=== PATIENT | female | born 1955 | race African-American/Black ===

== ENCOUNTER 2016-08-02 11:50 | Emergency (ER) | payer MEDICARE ==
--- NOTE | 2016-08-02 12:00 | ER Document Report ---
ED Medical Screen (RME) - General Stated Complaint: NAUSEA/VOMITING Notes: last night: hot and cold flashes, nausea with vomiting, denies abdominal pain. Last Bm- nl. I have greeted and performed a rapid initial assessment of this patient. A comprehensive ED assessment and evaluation of the patient, analysis of test results and completion of the medical decision making process will be conducted by additional ED providers. - Related Data Allergies/Adverse Reactions: No Known Allergies Allergy (Verified 08/02/16 12:01) Past Medical History - Past Medical History Cardiac Medical History: Reports: Hx Hypertension Neurological Medical History: Reports: Hx Migraine Endocrine Medical History: Reports: Hx Diabetes Mellitus Type 2 - glucose intolerant Past Surgical History: Reports: Hx Breast Surgery, Hx Hysterectomy - Immunizations Immunizations up to date: Yes Hx Diphtheria, Pertussis, Tetanus Vaccination: Yes Physical Exam - Vital signs Vitals: Temp Pulse Resp BP Pulse Ox 98.0 F 64 20 143/105 H 98 08/02/16 11:54 08/02/16 11:54 08/02/16 11:54 08/02/16 11:54 08/02/16 11:54 Course - Vital Signs Vital signs: Temp Pulse Resp BP Pulse Ox 98.0 F 64 20 143/105 H 98 08/02/16 11:54 08/02/16 11:54 08/02/16 11:54 08/02/16 11:54 08/02/16 11:54
[2016-08-02] MEDS ORDERED: ONDANSETRON 4 MG TAB.RAPDIS PO ONE (12:03)
[2016-08-02] MEDS ORDERED: NORMAL SALINE 1000 ML 1,000 ML IV PRN (12:29)
--- NOTE | 2016-08-02 12:45 | ER Document Report ---
ED GI/ - General Chief Complaint: Nausea/Vomiting Stated Complaint: NAUSEA/VOMITING Notes: 61 yo female c/o acute onset n/v last pm. + chills and sweats. + abdominal soreness from vomiting. no fever. no chest pain or shortness of breath TRAVEL OUTSIDE OF THE [place] IN LAST 30 DAYS: No - HPI Patient complains to provider of: Vomiting Onset: Yesterday Timing/Duration: Sudden Quality of pain: Achy Pain Level: 5 Vaginal bleeding (Compared to normal period): None Associated symptoms: Chills, Diarrhea, Nausea, Vomiting Exacerbated by: Denies Relieved by: Denies - Related Data Allergies/Adverse Reactions: No Known Allergies Allergy (Verified 08/02/16 12:01) Past Medical History - General Information source: Patient - Social History Smoking Status: Unknown if Ever Smoked Chew tobacco use (# tins/day): No Frequency of alcohol use: Occasional Drug Abuse: None Family History: Reviewed & Not Pertinent. denies: Malignancy Patient has suicidal ideation: No Patient has homicidal ideation: No - Past Medical History Cardiac Medical History: Reports: Hx Hypertension Neurological Medical History: Reports: Hx Migraine Endocrine Medical History: Reports: Hx Diabetes Mellitus Type 2 - glucose intolerant Renal/ Medical History: Denies: Hx Peritoneal Dialysis Past Surgical History: Reports: Hx Breast Surgery, Hx Hysterectomy - Immunizations Immunizations up to date: Yes Hx Diphtheria, Pertussis, Tetanus Vaccination: Yes Review of Systems - Review of Systems Constitutional: See HPI, Chills, Diaphoresis EENT: No symptoms reported Cardiovascular: No symptoms reported Respiratory: No symptoms reported Gastrointestinal: See HPI, Vomiting Genitourinary: No symptoms reported Female Genitourinary: No symptoms reported Musculoskeletal: No symptoms reported Skin: No symptoms reported Hematologic/Lymphatic: No symptoms reported Neurological/Psychological: No symptoms reported Physical Exam - Vital signs Vitals: Temp Pulse Resp BP Pulse Ox 98.0 F 64 20 143/105 H 98 08/02/16 11:54 08/02/16 11:54 08/02/16 11:54 08/02/16 11:54 08/02/16 11:54 Interpretation: Hypertensive - General General appearance: Alert In distress: Mild - mildly ill looking - HEENT Head: Normocephalic, Atraumatic Eyes: Normal Conjunctiva: Normal Pupils: PERRL Tympanic membrane: Normal Mucous membranes: Moist Neck: Normal, Supple - Respiratory Respiratory status: No respiratory distress Chest status: Nontender Breath sounds: Normal Chest palpation: Normal - Cardiovascular Rhythm: Regular Heart sounds: Normal auscultation Murmur: No - Abdominal Inspection: Normal Distension: No distension Bowel sounds: Normal Tenderness: Tender - mild generalized abdominal wall tenderness. no guarding or rebound Organomegaly: No organomegaly - Back Back: Normal, Nontender - Extremities General upper extremity: Normal inspection, Nontender, Normal color, Normal ROM , Normal temperature General lower extremity: Normal inspection, Nontender, Normal color, Normal ROM , Normal temperature, Normal weight bearing. No: Sahra's sign - Neurological Neuro grossly intact: Yes Cognition: Normal Orientation: AAOx4 [place] Coma Scale Eye Opening: Spontaneous [place] Coma Scale Verbal: Oriented Litzy Coma Scale Motor: Obeys Commands [place] Coma Scale Total: 15 Speech: Normal Motor strength normal: LUE, RUE, LLE, RLE Sensory: Normal - Psychological Associated symptoms: Normal affect, Normal mood - Skin Skin Temperature: Warm Skin Moisture: Dry Skin Color: Normal Course - Re-evaluation Re-evalutation: 08/02/16 12:44 pt evaluated. labs, IV and meds ordered. will continue to monitor 08/02/16 14:36 labs unremarkable except for + urine nitrites. will treat with antibiotic and and UC. pt is symptomatically improved. tolerating po. 08/02/16 14:38 pt is stable for discharge and out patient follow up. pt agreeable with plan 08/02/16 14:40 BP noted to be elevated on arrival. + hx/o HTN. actively vomiting at the time. 08/02/16 15:18 Improved at time of discharge - Vital Signs Vital signs: Temp Pulse Resp BP Pulse Ox 98.0 F 64 20 143/105 H 98 08/02/16 11:54 08/02/16 11:54 08/02/16 11:54 08/02/16 11:54 08/02/16 11:54 - Laboratory Result Diagrams: 08/02/16 12:45 08/02/16 12:45 Laboratory results interpreted by me: 08/02/16 08/02/16 12:45 13:54 Sodium 145.9 H Glucose 126 H Urine Ketones TRACE H Urine Blood MODERATE H Urine Nitrite POSITIVE H Discharge - Discharge Clinical Impression: Vomiting Qualifiers: Vomiting type: unspecified Vomiting Intractability: non-intractable Nausea presence: with nausea Qualified Code(s): R11.2 - Nausea with vomiting, unspecified UTI (urinary tract infection) Qualifiers: Urinary tract infection type: acute cystitis Hematuria presence: with hematuria Qualified Code(s): N30.01 - Acute cystitis with hematuria Condition: Stable Disposition: HOME, SELF-CARE Instructions: Intravenous (IV) Fluids ([facility]), Nitrofurantoin ([facility]), Urinary Tract Infection ([facility]), Vomiting ([facility]), Antinausea Medication ([facility]) Additional Instructions: meds as prescribed encourage fluids diet as tolerated follow up with primary care if symptoms persist return to ER for any worsening Prescriptions: Ondansetron HCl [Zofran 8 mg Tablet] 8 mg PO Q8HP PRN #20 tablet PRN Reason: Nitrofurantoin Macrocrystal [Macrodantin] 100 mg PO QID #28 capsule Forms: Elevated Blood Pressure
[2016-08-02 13:38] LABS: ALANINE AMINOTRANSFERASE 24 U/L (9-52); ALBUMIN 4.5 g/dL (3.5-5.0); ALKALINE PHOSPHATASE 71 U/L (38-126); ANION GAP 16 (5-19); ASPARTATE AMINO TRANSFERASE 24 U/L (14-36); BILIRUBIN,TOTAL 0.8 mg/dL (0.2-1.3); BLOOD UREA NITROGEN 17 mg/dL (7-20); CALCIUM 9.8 mg/dL (8.4-10.2); CARBON DIOXIDE 25 mmol/L (22-30); CHLORIDE 105 mmol/L (98-107); CREATININE RESULT 0.76 mg/dL (0.52-1.25); GLUCOSE 126 mg/dL (75-110); LIPASE 77.4 U/L (23-300); POTASSIUM 4.3 mmol/L (3.6-5.0); SODIUM 145.9 mmol/L (137-145); TOTAL PROTEIN 7.7 g/dL (6.3-8.2)
[2016-08-02 13:39] LABS: ABSOLUTE BASOPHILS # (AUTO) 0.1 10^3/uL (0.0-0.2); ABSOLUTE LYMPHOCYTES (AUTO) 2.1 10^3/uL (0.5-4.7); ABSOLUTE MONOCYTES (AUTO) 0.5 10^3/uL (0.1-1.4); BASOPHILS % (AUTO) 0.8 % (0-2); EOSINOPHILS % (AUTO) 0.1 % (0-6); HEMOGLOBIN 12.9 g/dL (12.0-15.5); HGB HCT DIFFERENCE 0.7; LYMPHOCYTES % (AUTO) 24.2 % (13-45); MEAN CORPUSCULAR HEMOGLOBIN 29.2 pg (27.0-33.4); MEAN CORPUSCULAR HGB CONC 33.8 g/dL (32.0-36.0); MEAN CORPUSCULAR VOLUME 86 fl (80-97); MONOCYTES % (AUTO) 5.8 % (3-13); RED CELL DISTRIBUTION WIDTH 13.6 % (11.5-14.0); SEGMENTED NEUTROPHILS % (AUTO) 69.1 % (42-78); WHITE BLOOD COUNT 8.6 10^3/uL (4.0-10.5)
[2016-08-02 14:17] LABS: APPEARANCE,URINE SLIGHTLY-CLOUDY; BILIRUBIN,URINE NEGATIVE (NEGATIVE); GLUCOSE, URINE NEGATIVE (NEGATIVE); KETONES,URINE TRACE mg/dL (NEGATIVE); LEUKOCYTE ESTERASE,URINE NEGATIVE (NEGATIVE); NITRITE,URINE POSITIVE (NEGATIVE); PROTEIN,URINE NEGATIVE (NEGATIVE); UROBILINOGEN,URINE NEGATIVE mg/dL (<2.0)
[2016-08-02 14:56] VITALS: BP 125/69
--- NOTE | 2016-08-04 09:59 | ER Document Report ---
Doctor's Note Notes: 08/04/16 09:57 Received a call from [facility] pharmacy and patient cannot afford the Macrodantin that was prescribed for her UTI. I checked the culture results and it shows Escherichia coli, resistant to Macrodantin, but sensitive to Bactrim, which is on their $4 list at [facility]. I prescribed Bactrim DS, twice a day, for 3 days.
== END 2016-08-02 14:59 | disposition home or self-care (01) ==
LOC: ER 11:50
DX: N30.01 Acute cystitis with hematuria (principal); R11.2 Nausea with vomiting, unspecified; R19.7 Diarrhea, unspecified; I10 Essential (primary) hypertension; E11.9 Type 2 diabetes mellitus without complications; Z90.710 Acquired absence of both cervix and uterus
CPT/HCPCS: 99284; 96360; 36415; 87086; 83690; 85025; 87088; 80053; 81001; 87186; 87804; S0119; J7030

== ENCOUNTER 2020-02-14 09:41 | Emergency (ER) | payer SELFPAY ==
[2020-02-14] MEDS ORDERED: ONDANSETRON HCL INJ/PF 4 MG/2 ML SDV IV ONE (10:21)
[2020-02-14] MEDS ORDERED: NORMAL SALINE 1000 ML 1,000 ML IV ONE (10:21)
[2020-02-14] MEDS ORDERED: MORPHINE SULFATE 10 MG/ML INJ IV ONE (10:21)
[2020-02-14 11:40] LABS: ABSOLUTE LYMPHOCYTES (AUTO) 1.5 10^3/uL (0.5-4.7); ABSOLUTE MONOCYTES (AUTO) 0.5 10^3/uL (0.1-1.4); ABSOLUTE NEUT (AUTO) 7.6 10^3/uL (1.7-8.2); BASOPHILS % (AUTO) 0.4 % (0-2); EOSINOPHILS % (AUTO) 0.4 % (0-6); HEMATOCRIT 39.1 % (36.0-47.0); HEMOGLOBIN 13.5 g/dL (12.0-15.5); LYMPHOCYTES % (AUTO) 15.1 % (13-45); MEAN CORPUSCULAR HEMOGLOBIN 29.7 pg (27.0-33.4); MEAN CORPUSCULAR HGB CONC 34.6 g/dL (32.0-36.0); MEAN CORPUSCULAR VOLUME 86 fl (80-97); MONOCYTES % (AUTO) 5.5 % (3-13); PLATELET COUNT 272 10^3/uL (150-450); RED BLOOD COUNT 4.56 10^6/uL (3.72-5.28); RED CELL DISTRIBUTION WIDTH 13.1 % (11.5-14.0); SEGMENTED NEUTROPHILS % (AUTO) 78.6 % (42-78); TOTAL CELLS COUNTED % (AUTO) 100 %; WHITE BLOOD COUNT 9.7 10^3/uL (4.0-10.5)
[2020-02-14 12:04] LABS: ALBUMIN 4.5 g/dL (3.5-5.0); ALKALINE PHOSPHATASE 77 U/L (38-126); ANION GAP 9 (5-19); ASPARTATE AMINO TRANSFERASE 29 U/L (14-36); BILIRUBIN,DIRECT 0.3 mg/dL (0.0-0.4); BILIRUBIN,TOTAL 0.6 mg/dL (0.2-1.3); BLOOD UREA NITROGEN 14 mg/dL (7-20); CALCIUM 9.4 mg/dL (8.4-10.2); CARBON DIOXIDE 26 mmol/L (22-30); CHLORIDE 106 mmol/L (98-107); GLUCOSE 104 mg/dL (75-110); POTASSIUM 4.2 mmol/L (3.6-5.0); TOTAL PROTEIN 7.8 g/dL (6.3-8.2)
--- NOTE | 2020-02-14 12:53 | RADIOLOGY REPORT (SQ) ---
EXAM DESCRIPTION: CT ABD/PELVIS WITH IV ONLY IMAGES COMPLETED DATE/TIME: 02/14/2020 12:34 pm REASON FOR STUDY: pain/bleeding COMPARISON: None. TECHNIQUE: CT scan of the abdomen and pelvis performed using helical scanning technique with dynamic intravenous contrast injection. There is a small amount of oral contrast in the right colon. Images reviewed with lung, soft tissue, and bone windows. Reconstructed coronal and sagittal MPR images rev iewed. Delayed images for evaluation of the urinary system also acquired. All images stored on PACS. All CT scanners at this facility use dose modulation, iterative reconstruction, and/or weight based d osing when appropriate to reduce radiation dose to as low as reasonably achievable (ALARA). [facility]: Dose Right [facility]: CareDose [facility]: Dose Right [facility]: Teradose 4D [facility]: Dydra CONTRAST TYPE AND DOSE: contrast/concentration: Isovue 350.00 mmol/ml; Total Contrast Delivered: 61. 0 ml; Total Saline Delivered: 53.7 ml RENAL FUNCTION: BUN 14 creatinine 0.62 RADIATION DOSE: CT Rad equipment meets quality standard of care and radiation dose reduction techniq ues were employed. CTDIvol: 4.8 - 4.9 mGy. DLP: 488 mGy-cm.. LIMITATIONS: None. FINDINGS: LOWER CHEST: There are 3 somewhat semi-solid pulmonary nodules in the right lower lobe. S ee images 4, 6, and 9. The largest measures 6.6 mm on image 9. LIVER: Normal size. No masses. No dilated ducts. SPLEEN: Normal size. No focal lesions. PANCREAS: No masses. No significant calcifications. No adjacent inflammation or peripancreatic fluid collections. Pancreatic duct not dilated. GALLBLADDER: No identified stones by CT criteria. No inflammatory changes to suggest cholecystitis. ADRENAL GLANDS: No significant masses or asymmetry. RIGHT KIDNEY AND URETER: No solid masses. No significant calcifications. No hydronephrosis or hyd roureter. LEFT KIDNEY AND URETER: No solid masses. No significant calcifications. No hydronephrosis or hydr oureter. AORTA AND VESSELS: No aneurysm. No dissection. Renal arteries, SMA, celiac without stenosis. RETROPERITONEUM: No retroperitoneal adenopathy, hemorrhage or masses. BOWEL AND PERITONEAL CAVITY: No masses or inflammatory changes. No free fluid or peritoneal masses. APPENDIX: Not identified. PELVIS: No mass. No free fluid. Normal bladder. ABDOMINAL WALL: No masses. No hernias. BONES: No significant or acute findings. OTHER: No other significant finding. IMPRESSION: There are 3 semi-solid pulmonary nodules in the right lower lobe. No significant findin g in the abdomen or pelvis. COMMENT: Fleischner Criteria for Ground Glass Nodules: >6 mm subsolid multiple nodules: CT 3-6 mo; subsequent management based on most suspicious nodules. TECHNICAL DOCUMENTATION: JOB ID: [id number] Quality ID # [id number]: Final reports with documentation of one or more dose reduction techniques (e.g., Au tomated exposure control, adjustment of the mA and/or kV according to patient size, use of iterative reconstruction technique) 2010 [employer]- All Rights Reserved Reading location - IP/workstation name: [email or web address]
--- NOTE | 2020-02-14 13:53 | ER Document Report ---
ED General - General Chief Complaint: Rectal Bleeding Stated Complaint: VOMITING,VAGINAL BLEEDING Time Seen by Provider: 02/14/20 10:14 Primary Care Provider: LORETTA,NO [Primary Care Provider] - Follow up as needed Mode of Arrival: Ambulatory Information source: Patient TRAVEL OUTSIDE OF THE [place] IN LAST 30 DAYS: No - HPI Notes: Patient presents complaining of nausea vomiting and diarrhea. She states she had 2-3 episodes of bloody diarrhea as well as nausea and vomiting this morning. She states this all seemed to start this morning. She states she has some lower abdominal crampy pain but is been minor. Is been intermittent. Nothing makes better or worse. Does not radiate. Although the triage nurse states that patient mentioned vaginal bleeding she specifically denied any type of vaginal bleeding to me. And does state that she is actually had a hysterectomy in the past. Patient denies any problems with urination. No fevers. She has had no known ill contacts. - Related Data Allergies/Adverse Reactions: No Known Allergies Allergy (Verified 02/14/20 09:59) Past Medical History - General Information source: Patient - Social History Smoking Status: Current Every Day Smoker Chew tobacco use (# tins/day): No Frequency of alcohol use: Occasional Drug Abuse: Marijuana Family History: Reviewed & Not Pertinent. denies: Malignancy Patient has homicidal ideation: No - Past Medical History Cardiac Medical History: Reports: Hx Hypertension Neurological Medical History: Reports: Hx Migraine Endocrine Medical History: Reports: Hx Diabetes Mellitus Type 2 - glucose intolerant Renal/ Medical History: Denies: Hx Peritoneal Dialysis Past Surgical History: Reports: Hx Breast Surgery, Hx Hysterectomy - Immunizations Immunizations up to date: Yes Hx Diphtheria, Pertussis, Tetanus Vaccination: Yes Review of Systems - Review of Systems Constitutional: denies: Chills, Fever Cardiovascular: denies: Chest pain, Palpitations Respiratory: denies: Cough, Short of breath -: Yes All other systems reviewed and negative Physical Exam - Vital signs Vitals: Temp Pulse Resp BP Pulse Ox 98.7 F 80 16 148/83 H 100 02/14/20 09:48 02/14/20 09:48 02/14/20 09:48 02/14/20 09:48 02/14/20 09:48 Interpretation: Normal - General General appearance: Appears well, Alert - HEENT Head: Normocephalic, Atraumatic Eyes: Normal Pupils: PERRL - Respiratory Respiratory status: No respiratory distress Chest status: Nontender Breath sounds: Normal Chest palpation: Normal - Cardiovascular Rhythm: Regular Heart sounds: Normal auscultation Murmur: No - Abdominal Inspection: Normal Distension: No distension Bowel sounds: Normal Tenderness: Nontender Organomegaly: No organomegaly - Back Back: Normal, Nontender - Extremities General upper extremity: Normal inspection, Nontender, Normal color, Normal ROM, Normal temperature General lower extremity: Normal inspection, Nontender, Normal color, Normal ROM, Normal temperature, Normal weight bearing. No: Sahra's sign - Neurological Neuro grossly intact: Yes Cognition: Normal Orientation: AAOx4 [place] Coma Scale Eye Opening: Spontaneous [place] Coma Scale Verbal: Oriented Litzy Coma Scale Motor: Obeys Commands Litzy Coma Scale Total: 15 Speech: Normal Motor strength normal: LUE, RUE, LLE, RLE Sensory: Normal - Psychological Associated symptoms: Normal affect, Normal mood - Skin Skin Temperature: Warm Skin Moisture: Dry Skin Color: Normal Course - Re-evaluation Re-evalutation: 02/14/20 14:01 Patient presents with vomiting and bloody diarrhea. Her abdominal exam is benign. Vital signs are stable. Laboratories are unremarkable. CT scan shows no evidence of intra-abdominal pathology. Followed up. I will treat her with antibiotics for the bloody diarrhea. At this time I do believe she is stable for discharge. She has had no episodes of bloody diarrhea since she has been here in the emergency department. - Vital Signs Vital signs: Temp Pulse Resp BP Pulse Ox 98.7 F 80 16 148/83 H 100 02/14/20 09:59 02/14/20 09:48 02/14/20 09:48 02/14/20 09:48 02/14/20 09:48 - Laboratory Result Diagrams: 02/14/20 10:55 02/14/20 10:55 Laboratory results interpreted by me: 02/14/20 10:55 Seg Neutrophils % 78.6 H - Diagnostic Test Radiology reviewed: Image reviewed, Reports reviewed Discharge - Discharge Clinical Impression: Pulmonary nodule Diarrhea Qualifiers: Diarrhea type: infectious Qualified Code(s): A09 - Infectious gastroenteritis and colitis, unspecified Condition: Stable Disposition: HOME, SELF-CARE Instructions: Diarrhea, Nonspecific ([facility]) Additional Instructions: You have nodules on your lungs. You need to discuss these findings with a primary doctor as soon as possible. You need to have a repeat CT scan of your lungs in 3 months to evaluate the nodules. If you are unable to find a primary doctor to help you arrange this please return to the emergency department. Prescriptions: Ciprofloxacin HCl [Cipro 500 mg Tablet] 500 mg PO BID 10 Days #20 tablet Metronidazole [Flagyl 500 mg Tablet] 500 mg PO BID 10 Days #20 tablet Referrals: [facility] [Provider Group] - Follow up in 3-5 days
[2020-02-14 14:23] VITALS: BP 159/72
== END 2020-02-14 14:23 | disposition home or self-care (01) ==
LOC: ER 09:41
DX: A09 Infectious gastroenteritis and colitis, unspecified (principal); R91.1 Solitary pulmonary nodule; K62.5 Hemorrhage of anus and rectum; R11.2 Nausea with vomiting, unspecified; R10.30 Lower abdominal pain, unspecified; F17.200 Nicotine dependence, unspecified, uncomplicated; I10 Essential (primary) hypertension; E11.9 Type 2 diabetes mellitus without complications
CPT/HCPCS: 99285; 96361; 96374; 96375; 36415; 84443; 85025; 80053; 74177; J2270; J2405; J7030

== ENCOUNTER 2020-02-18 12:33 | Emergency (ER) | payer SELFPAY ==
--- NOTE | 2020-02-18 12:55 | ER Document Report ---
ED Medical Screen (RME) - General Stated Complaint: ABDOMINAL PAIN/POSSIBLE BLOOD IN STOOL Time Seen by Provider: 02/18/20 12:47 Primary Care Provider: LORETTA,MAXIMILIAN [Primary Care Provider] - Follow up as needed Mode of Arrival: Ambulatory Information source: Patient Notes: HPI; 64-year-old female presents to the emergency room with diarrhea that started last evening. States she is had multiple episodes of watery diarrhea. Patient states she was here on Wednesday for diarrhea with rectal bleeding. States she was diagnosed with hemorrhoids. Was discharged home on Cipro and Flagyl which she is been taking as prescribed. Complaining of some abdominal cramping. Denies any rectal bleeding today. Denies any nausea, vomiting, no fevers. No recent travel. No COVID-19 exposure. PE: Alert and oriented x3. Mild distress noted. Lungs: Clear to auscultation without rales, rhonchi, wheezes. Heart: Regular rate rhythm without murmurs, rubs, gallops. I have greeted and performed a rapid initial assessment of this patient. A comprehensive ED assessment and evaluation of the patient, analysis of test results and completion of the medical decision making process will be conducted by additional ED providers. I have specifically instructed the patient or family members with the patient to immediately return to any nursing staff should anything change in the patient's condition or with their chief complaint. TRAVEL OUTSIDE OF THE [place] IN LAST 30 DAYS: No - Related Data Allergies/Adverse Reactions: No Known Allergies Allergy (Verified 02/14/20 09:59) Past Medical History - Past Medical History Cardiac Medical History: Reports: Hx Hypertension Neurological Medical History: Reports: Hx Migraine Endocrine Medical History: Reports: Hx Diabetes Mellitus Type 2 - glucose intolerant Renal/ Medical History: Denies: Hx Peritoneal Dialysis Past Surgical History: Reports: Hx Breast Surgery, Hx Hysterectomy - Immunizations Immunizations up to date: Yes Hx Diphtheria, Pertussis, Tetanus Vaccination: Yes Doctor's Discharge - Discharge Referrals: LORETTA,NO [Primary Care Provider] - Follow up as needed
[2020-02-18 13:34] LABS: ABSOLUTE BASOPHILS # (AUTO) 0.1 10^3/uL (0.0-0.2); ABSOLUTE EOSINOPHILS # (AUTO) 0.1 10^3/uL (0.0-0.6); ABSOLUTE MONOCYTES (AUTO) 0.7 10^3/uL (0.1-1.4); BASOPHILS % (AUTO) 1.2 % (0-2); EOSINOPHILS % (AUTO) 1.1 % (0-6); HEMATOCRIT 36.9 % (36.0-47.0); HEMOGLOBIN 12.6 g/dL (12.0-15.5); LYMPHOCYTES % (AUTO) 25.3 % (13-45); MEAN CORPUSCULAR HEMOGLOBIN 29.5 pg (27.0-33.4); MEAN CORPUSCULAR HGB CONC 34.2 g/dL (32.0-36.0); MEAN CORPUSCULAR VOLUME 86 fl (80-97); MONOCYTES % (AUTO) 8.7 % (3-13); PLATELET COUNT 247 10^3/uL (150-450); RED BLOOD COUNT 4.27 10^6/uL (3.72-5.28); RED CELL DISTRIBUTION WIDTH 13.2 % (11.5-14.0); SEGMENTED NEUTROPHILS % (AUTO) 63.7 % (42-78); TOTAL CELLS COUNTED % (AUTO) 100 %; WHITE BLOOD COUNT 7.8 10^3/uL (4.0-10.5)
[2020-02-18 13:37] LABS: APPEARANCE,URINE CLEAR; BILIRUBIN,URINE NEGATIVE (NEGATIVE); COLOR,URINE YELLOW; GLUCOSE, URINE NEGATIVE (NEGATIVE); KETONES,URINE NEGATIVE (NEGATIVE); LEUKOCYTE ESTERASE,URINE MODERATE (NEGATIVE); NITRITE,URINE NEGATIVE (NEGATIVE); PROTEIN,URINE NEGATIVE (NEGATIVE)
[2020-02-18 13:54] LABS: ALBUMIN 4.1 g/dL (3.5-5.0); ALKALINE PHOSPHATASE 72 U/L (38-126); ANION GAP 8 (5-19); ASPARTATE AMINO TRANSFERASE 31 U/L (14-36); BILIRUBIN,DIRECT 0.3 mg/dL (0.0-0.4); BILIRUBIN,TOTAL 0.5 mg/dL (0.2-1.3); BLOOD UREA NITROGEN 12 mg/dL (7-20); CARBON DIOXIDE 24 mmol/L (22-30); CHLORIDE 109 mmol/L (98-107); GLUCOSE 94 mg/dL (75-110); POTASSIUM 3.8 mmol/L (3.6-5.0); TOTAL PROTEIN 7.3 g/dL (6.3-8.2)
--- NOTE | 2020-02-18 14:26 | ER Document Report ---
ED GI/ - General Chief Complaint: Diarrhea Stated Complaint: ABDOMINAL PAIN/POSSIBLE BLOOD IN STOOL Time Seen by Provider: 02/18/20 12:47 Primary Care Provider: MAXIMILIAN BURGOS [Primary Care Provider] - Follow up as needed Mode of Arrival: Ambulatory Notes: HPI: Patient is an otherwise healthy 64-year-old female that presents today with the onset of some nausea, vomiting, and diarrhea, Wednesday around 5 days ago. She was seen here the next day on Wednesday. CT scan of the abdomen and pelvis showed nothing acute with a normal white blood cell count, liver panel, lipase, with a pulmonary nodule noticed incidentally. She was started despite a normal work-up on Flagyl and Cipro. She states that the diarrhea did improve until last evening when she started to have diarrhea again. She previously has noted some blood in the diarrhea but today denies this. She is status post hysterectomy. She denies any recent trips or travel or antibiotics before this was prescribed on Wednesday. She denies any and all nausea, vomiting, back pain, or dysuria. ROS: See HPI All other review of systems reviewed and otherwise negative Reviewed vital signs and nursing note as charted by RN. PHYSICAL EXAM: CONSTITUTIONAL: Alert and oriented and responds appropriately to questions. Well-appearing; well-nourished HEAD: Normocephalic; atraumatic EYES: Sclerae non-icteric ENT: Normal nose; no rhinorrhea; moist mucous membranes; pharynx without lesions noted NECK: Supple without meningismus; non-tender; no cervical lymphadenopathy, no masses CARD: Regular rate and rhythm; no murmurs; symmetric distal pulses RESP: Normal chest excursion without splinting or tachypnea; breath sounds clear and equal bilaterally; no wheezes, no rhonchi, no rales ABD/GI: Normal bowel sounds; non-distended; soft, currently no focal tenderness to deep palpation of all 4 quadrants of the abdomen including the lack of any abdominal bruits or palpable masses BACK: The back appears normal and is non-tender to palpation EXT: Normal ROM in all joints; non-tender to palpation; no edema SKIN: No acute lesions noted NEURO: CN 2-12 intact; 5/5 bilateral upper and lower extremity strength with sensation intact to light touch PSYCH: The patient's mood and manner are appropriate. Grooming and personal hygiene are appropriate. TRAVEL OUTSIDE OF THE [place] IN LAST 30 DAYS: No - Related Data Allergies/Adverse Reactions: No Known Allergies Allergy (Verified 02/14/20 09:59) Past Medical History - General Information source: Patient - Social History Smoking Status: Never Smoker Chew tobacco use (# tins/day): No Frequency of alcohol use: None Drug Abuse: Marijuana Family History: Reviewed & Not Pertinent. denies: Malignancy - Past Medical History Cardiac Medical History: Reports: Hx Hypertension Neurological Medical History: Reports: Hx Migraine Endocrine Medical History: Reports: Hx Diabetes Mellitus Type 2 - glucose intolerant Renal/ Medical History: Denies: Hx Peritoneal Dialysis Past Surgical History: Reports: Hx Breast Surgery, Hx Hysterectomy - Immunizations Immunizations up to date: Yes Hx Diphtheria, Pertussis, Tetanus Vaccination: Yes Physical Exam - Vital signs Vitals: Temp Pulse Resp BP Pulse Ox 97.9 F 70 16 154/89 H 100 02/18/20 12:58 02/18/20 12:58 02/18/20 12:58 02/18/20 12:58 02/18/20 12:58 Course - Re-evaluation Re-evalutation: 02/18/20 14:25 Given the history and physical examination we will repeat the patient's liver panel, lipase, and electrolytes. I will hold on repeat CT imaging given the stable vital signs, afebrile, with no tenderness on repeat abdominal examination. I will send stool studies including C. difficile. Patient denies any recent trips or travel or antibiotics before being started on Wednesday. 02/18/20 15:54 Labs as recorded. White blood cell count as recorded. Some leukocytes in the urine and urine culture has been sent. Patient is already on ciprofloxacin. Patient has no abdominal discomfort on repeat exam. Vital signs are stable. No signs or symptoms of acute intra-abdominal process at this time. Patient has not had any bouts of diarrhea here. Given the above history and physical, labs, repeat examinations, I believe it is reasonable to discharge the patient home at this time with strict return precautions and follow-up with the primary care physician. - Vital Signs Vital signs: Temp Pulse Resp BP Pulse Ox 97.9 F 70 16 154/89 H 100 02/18/20 12:58 02/18/20 12:58 02/18/20 12:58 02/18/20 12:58 10/04/20 12:58 - Laboratory Result Diagrams: 02/18/20 13:20 02/18/20 13:20 Laboratory results interpreted by me: 02/18/20 02/18/20 13:00 13:20 Chloride 109 H Urine Blood SMALL H Urine Urobilinogen 2.0 H Ur Leukocyte Esterase MODERATE H Discharge - Discharge Clinical Impression: Abdominal cramping Diarrhea Qualifiers: Diarrhea type: unspecified type Qualified Code(s): R19.7 - Diarrhea, unspecified Condition: Good Disposition: HOME, SELF-CARE Additional Instructions: Come back immediately for any lightheadedness, dizziness, return or worsening abdominal pain, excessive diarrhea, blood in the diarrhea, vomiting, or any other acute problems. Please follow-up with your primary care physician for reassessment as discussed. Referrals: LOCAL,NO [Primary Care Provider] - Follow up as needed
[2020-02-18 14:35] LABS: C DIFFICILE GDH NEGATIVE (NEGATIVE)
[2020-02-18 16:11] VITALS: BP 159/82
== END 2020-02-18 16:12 | disposition home or self-care (01) ==
LOC: ER 12:33
DX: R19.7 Diarrhea, unspecified (principal); R10.9 Unspecified abdominal pain; R11.2 Nausea with vomiting, unspecified; F12.10 Cannabis abuse, uncomplicated; I10 Essential (primary) hypertension; E11.9 Type 2 diabetes mellitus without complications
CPT/HCPCS: 36415; 80053; 81001; 85025; 87045; 87205; 87324; 87449; 99282

== ENCOUNTER 2020-04-23 09:24 | Emergency (ER) | payer OTHER ==
--- NOTE | 2020-04-23 11:29 | RADIOLOGY REPORT (SQ) ---
EXAM DESCRIPTION: CT CHEST WITHOUT IMAGES COMPLETED DATE/TIME: 04/23/2020 11:10 am REASON FOR STUDY: eval right pulm nodules COMPARISON: 02/14/2020 TECHNIQUE: CT scan performed of the chest without intravenous contrast. Images reviewed with lung, soft tissue and bone windows. Reconstructed coronal and sagittal MPR images reviewed. All images st ored on PACS. All CT scanners at this facility use dose modulation, iterative reconstruction, and/or weight based d osing when appropriate to reduce radiation dose to as low as reasonably achievable (ALARA). [facility]: Dose Right [facility]: CareDose [facility]: Dose Right [facility]: Teradose 4D [facility]: Smart Oriense RADIATION DOSE: CT Rad equipment meets quality standard of care and radiation dose reduction techniq ues were employed. CTDIvol: 5.1 mGy. DLP: 194 mGy-cm. LIMITATIONS: No technical limitations. FINDINGS: LUNGS AND PLEURA: Stable appearance to the previously demonstrated subcentimeter nodules in the lower lobes previously identified on the CT abdomen and pelvis study dated 02/14/2020. A few o ther subcentimeter pulmonary nodules are also noted. Some of the largest nodules measure 7-8.0 mm. Emphysematous changes in the lungs with paraseptal and paramediastinal blebs/bullae more so in the up per 2/3's of the lungs. Biapical scarring slightly more so on the left. Minimal scattered areas of scarring in the lungs. No pneumothorax or pleural effusion. The central airways are clear. HILAR AND MEDIASTINAL STRUCTURES: No identified masses or abnormal nodes. No obvious aneurysm. HEART AND VASCULAR STRUCTURES: Mild atherosclerotic changes involving the thoracic aorta. The desce nding aorta is mildly ectatic in appearance. No pericardial effusion. UPPER ABDOMEN: No significant interval changes. Limited exam. THYROID AND OTHER SOFT TISSUES: No masses. No adenopathy. BONES: No significant finding. HARDWARE: None in the chest. OTHER: No other significant findings. IMPRESSION: 1. Subcentimeter pulmonary nodules, the nodules previously identified on the CT abdomen and pelvis study dated 02/14/2020 are stable in appearance. A follow-up noncontrast CT examination i s suggested in 6 months. 2. Emphysematous changes in the lungs. COMMENT: [facility] CRITERIA FOR FOLLOW-UP OF PULMONARY NODULES Incidentally detected new nodules in persons 35 or older. HIGH RISK: History of smoking or other known risk factors. 6-8 mm single solid nodule: LOW RISK: CT 6-12 mo; then consider CT 18-24 mo. HIGH RISK: CT 6-12 mo; t hen CT 18-24 mo. TECHNICAL DOCUMENTATION: JOB ID: [id number] Quality ID # [id number]: Final reports with documentation of one or more dose reduction techniques (e.g., Au tomated exposure control, adjustment of the mA and/or kV according to patient size, use of iterative reconstruction technique) 2010 [employer]- All Rights Reserved Reading location - IP/workstation name: [id number]
--- NOTE | 2020-04-23 12:03 | ER Document Report ---
ED General - General Chief Complaint: Medical Clearance Stated Complaint: LEFT LUNG PAIN Time Seen by Provider: 04/23/20 10:06 Mode of Arrival: Ambulatory Information source: Patient TRAVEL OUTSIDE OF THE [place] IN LAST 30 DAYS: No - HPI Notes: Patient presents for evaluation of pulmonary nodules. She states she was seen here approximate 3 months ago diagnosed with pulmonary nodules. She was told that she needed a repeat CT scan in 3 months and has been unable to get a primary care doctor so she turns here for evaluation. She states she has had no significant symptoms in the last 3 months. She has not had any type of cough or cold. No shortness of breath. No hemoptysis. No weakness. She states she has had some mild occasional sharp pains in the bilateral lower chest out laterally. These appear to be random and brief. - Related Data Allergies/Adverse Reactions: No Known Allergies Allergy (Verified 04/23/20 09:32) Past Medical History - General Information source: Patient - Social History Smoking Status: Current Every Day Smoker Drug Abuse: Marijuana Family History: Reviewed & Not Pertinent. denies: Malignancy - Past Medical History Cardiac Medical History: Reports: Hx Hypertension Neurological Medical History: Reports: Hx Migraine Endocrine Medical History: Reports: Hx Diabetes Mellitus Type 2 - glucose intolerant Renal/ Medical History: Denies: Hx Peritoneal Dialysis Past Surgical History: Reports: Hx Breast Surgery, Hx Hysterectomy - Immunizations Immunizations up to date: Yes Hx Diphtheria, Pertussis, Tetanus Vaccination: Yes Review of Systems - Review of Systems Constitutional: denies: Chills, Fever Cardiovascular: Chest pain. denies: Palpitations Respiratory: denies: Cough, Short of breath -: Yes All other systems reviewed and negative Physical Exam - Vital signs Vitals: Temp Pulse Resp BP Pulse Ox 98.1 F 93 16 176/81 H 98 04/23/20 09:29 04/23/20 09:29 04/23/20 09:29 04/23/20 09:29 04/23/20 09:29 Interpretation: Normal - General General appearance: Appears well, Alert - HEENT Head: Normocephalic, Atraumatic Eyes: Normal Pupils: PERRL - Respiratory Respiratory status: No respiratory distress Chest status: Nontender Breath sounds: Normal Chest palpation: Normal - Cardiovascular Rhythm: Regular Heart sounds: Normal auscultation Murmur: No - Abdominal Inspection: Normal Distension: No distension Bowel sounds: Normal Tenderness: Nontender Organomegaly: No organomegaly - Back Back: Normal, Nontender - Extremities General upper extremity: Normal inspection, Nontender, Normal color, Normal ROM, Normal temperature General lower extremity: Normal inspection, Nontender, Normal color, Normal ROM, Normal temperature, Normal weight bearing. No: Sahra's sign - Neurological Neuro grossly intact: Yes Cognition: Normal Orientation: AAOx4 Litzy Coma Scale Eye Opening: Spontaneous Pierpont Coma Scale Verbal: Oriented Litzy Coma Scale Motor: Obeys Commands Pierpont Coma Scale Total: 15 Speech: Normal Motor strength normal: LUE, RUE, LLE, RLE Sensory: Normal - Psychological Associated symptoms: Normal affect, Normal mood - Skin Skin Temperature: Warm Skin Moisture: Dry Skin Color: Normal Course - Re-evaluation Re-evalutation: 04/23/20 12:00 Patient seen here for a CT scan of the chest. Her nodules are stable. She will be recommended to have follow-up in 6 months. - Vital Signs Vital signs: Temp Pulse Resp BP Pulse Ox 98.1 F 93 16 176/81 H 98 04/23/20 09:29 04/23/20 09:29 04/23/20 09:29 04/23/20 09:29 04/23/20 09:29 - Diagnostic Test Radiology Studies Status: Radiology Report Reviewed Radiology results interpreted by me: 04/23/20 12:00 None Discharge - Discharge Clinical Impression: Pulmonary nodules, Chest wall pain Condition: Stable Disposition: HOME, SELF-CARE Instructions: Chest Wall Pain ([facility]) Additional Instructions: Please have a repeat CT scan of your chest in 6 months Forms: Return to Work Referrals: [facility] [Provider Group] - Follow up in 1 week
[2020-04-23 12:11] VITALS: BP 168/80
== END 2020-04-23 12:10 | disposition home or self-care (01) ==
LOC: ER 09:24
DX: R91.8 Other nonspecific abnormal finding of lung field (principal); R07.89 Other chest pain; F17.200 Nicotine dependence, unspecified, uncomplicated; I10 Essential (primary) hypertension; E11.9 Type 2 diabetes mellitus without complications
CPT/HCPCS: 71250; 99284